=== PATIENT | male | born 1995 | race Caucasian/White ===

== ENCOUNTER 2020-04-20 02:43 | Emergency (ER) | payer OTHER ==
[~2020-04-20] VITALS: Ht 177.8 cm; Wt 75.0 kg
[~2020-04-20 02:43] MED LIST: LORTAB 5/500 501 TAB PO; NO HOME MEDICATIONS
[2020-04-20 02:47] VITALS: TEMP 98.2
[2020-04-20 03:30] VITALS: BP 128/85; PULSE 79
== END 2020-04-20 03:32 | disposition home or self-care (01) ==
LOC: COL.ER 02:43
DX: S51.812A Laceration without foreign body of left forearm, initial encounter (principal); W01.0XXA Fall on same level from slipping, tripping and stumbling without subsequent striking against object, initial encounter; Y92.009 Unspecified place in unspecified non-institutional (private) residence as the place of occurrence of the external cause